=== PATIENT | male | born 1960 | race Caucasian/White ===

== ENCOUNTER 2016-09-11 05:54 | Inpatient (IN) | payer OTHER ==
--- NOTE | 2016-09-10 09:55 | HP ---
[facility] - Chief Complaint Chief Complaint: right hip pain - Past Medical History Allergies/Adverse Reactions: Allergies Allergy/AdvReac Type Severity Reaction Status Date / Time No Known Drug Allergies Allergy Verified 08/19/14 11:42 - Current Medications Current Medications: Home Medications Medication Instructions Recorded Amlodipine Besylate 10 mg PO HS 09/04/16 Atorvastatin Ca [Lipitor] 20 mg PO DAILY 09/04/16 Hydrocodone/Acetaminophen 1 each PO DAILY PRN 09/04/16 [Hydrocodon-Acetaminoph 7.5-325] Losartan/Hydrochlorothiazide 1 each PO DAILY 09/04/16 [Losartan-Hctz 100-12.5 mg Tab] Oxycodone HCl/Acetaminophen 1 - 2 tab PO HS PRN 09/04/16 [Percocet 5/325 -] Satellite Physical Exam - Physical Examination General Appearance: Well Nourished, Well Developed, Alert & Oriented x3 ENT: Clear Lung: Normal air movement Heart: Regular rate & rhythm Extremities: Other (right hip- + ttp, decr rom, nvi xrays show severe hip djd) Neurological: Intact, Alert, Oriented Satellite Impression/Plan - Impression/Plan Impression: right hip djd Operative Procedure: right suzanne thr Date to be Performed: 09/11/16
[2016-09-11] MEDS ORDERED: GABAPENTIN 300 MG CAPSULE (FP) PO ONE (06:12)
[2016-09-11] MEDS ORDERED: CEFAZOLIN 2 GM/D5W 50 ML IVPB ONE (06:12)
[2016-09-11] MEDS ORDERED: oxyCODONE HCL 10 MG SUSTAINED ACTING TABLET PO ONE (06:12)
[2016-09-11] MEDS ORDERED: TRANEXAMIC ACID 1000 MG/10 ML VIAL IVPUSH ONE (06:12)
[2016-09-11] MEDS ORDERED: CELECOXIB 200 MG CAPSULE PO ONE (06:12)
[2016-09-11 06:34] VITALS: BMI 35.2
[2016-09-11] MEDS ORDERED: DEXAMETHASONE SOD PHOSPHATE/PF 10 MG/ML SDV ONE (06:53)
[2016-09-11] MEDS ORDERED: SODIUM CHLORIDE 0.9% P/F 10 ML VIAL IJ ONE (06:53)
[2016-09-11] MEDS ORDERED: ROPIVACAINE HCL 0.5% 30ML VIAL ONE (06:53)
[2016-09-11] MEDS ORDERED: MIDAZOLAM HCL 2 MG/2 ML SINGLE DOSE VIAL ONE (06:53)
[2016-09-11] MEDS ORDERED: VANCOMYCIN 1,000 MG VIAL (RESTRICTED TO ID ONLY) ONE (07:26)
[2016-09-11] MEDS ORDERED: ceFAZolin SODIUM 1 GM VIAL ONE (07:26)
[2016-09-11] MEDS ORDERED: ePHEDrine SULFATE 50 MG/1 ML AMPULE ONE (07:40)
[2016-09-11] MEDS ORDERED: PROPOFOL 20 ML ONE ×5 (07:40)
[2016-09-11] MEDS ORDERED: SUCCINYLCHOLINE CHLORIDE 200 MG/10 ML VIAL ONE (07:41)
[2016-09-11] MEDS ORDERED: BUPIVACAINE HCL/PF 0.5% (5MG/ML) 10 ML VIAL ONE (07:45)
[2016-09-11] MEDS ORDERED: KETAMINE HCL 200 MG/20 ML VIAL ONE (08:56)
[2016-09-11] MEDS ORDERED: VANCOMYCIN 1,000 MG VIAL (RESTRICTED TO ID ONLY) IVPB ONE (09:33)
[2016-09-11] MEDS ORDERED: ONDANSETRON 4 MG/2 ML VIAL IVPB PRN (09:56)
[2016-09-11] MEDS ORDERED: MAGNESIUM HYDROX 2400MG/30ML ORAL SUSPENSION 30 ML CUP PO PRN (09:56)
--- NOTE | 2016-09-11 09:59 | OP ---
Operative Note - Note: Operative Date: 09/11/16 (jim) Pre-Operative Diagnosis: right hip djd Operation: right suzanne thr Post-Operative Diagnosis: Same as Pre-op Surgeon: Barrett Orona Obiee Obia Solution Architect: Juan De Leon Anesthesiologist/SHUTTLE OPERATOR: Gee Lucas Anesthesia: Spinal, Local Specimens Removed: femoral head Estimated Blood Loss (mls): 100 Operative Report Dictated: Yes
[2016-09-11] MEDS ORDERED: LACTATED RINGERS SOLUTION 1,000 ML IV SCH (10:00)
[2016-09-11] MEDS ORDERED: PATIENT'S OWN MEDICATION (NON-FORMULARY) (Losartan/Hydrochlorothiazide [Losartan-Hctz 100- PO SCH (10:00)
[2016-09-11] MEDS ORDERED: MAG HYDROX/AL HYDROX/SIMETH 30 ML UNIT-DOSE CUP PO PRN (10:20)
[2016-09-11] MEDS ORDERED: ACETAMINOPHEN 325 MG TABLET (FP) ONE (10:31)
[2016-09-11] MEDS ORDERED: oxyCODONE HCL 5 MG TABLET PO PRN (10:37)
[2016-09-11] MEDS ORDERED: ACETAMINOPHEN 325 MG TABLET (FP) PO ONE (10:39)
[2016-09-11] MEDS ORDERED: oxyCODONE HCL 5 MG TABLET PO ONE (10:58)
[2016-09-11 11:15] LABS: HIV 1 & 2 AB NEGATIVE; HIV 1 AGp24 NEGATIVE
[2016-09-11] MEDS: ATORVASTATIN CA 20 MG TABLET (FP) PO SCH (11:33)
[2016-09-11] MEDS: SENNOSIDES/DOCUSATE COMBO (SENNA PLUS) TABLET (UD) PO SCH ×2 (11:33→22:00)
[2016-09-11] MEDS: MULTIVITAMINS (DAILY MVI) TABLET (FP) PO SCH (11:34)
[2016-09-11] MEDS: ACETAMINOPHEN 325 MG TABLET (FP) PO SCH ×2 (11:34→16:49)
[2016-09-11] MEDS: PANTOPRAZOLE 40 MG TABLET (FP) PO SCH (11:34)
[2016-09-11] MEDS: oxyCODONE HCL 5 MG TABLET PO PRN ×3 (14:02→21:59)
[2016-09-11] MEDS: CEFAZOLIN 2 GM/D5W 50 ML IVPB SCH (15:51)
--- NOTE | 2016-09-11 15:53 | SPEC ---
DATE OF OPERATION: 09/11/2016 PREOPERATIVE DIAGNOSIS: Degenerative Joint Disease, Right Hip POSTOPERATIVE DIAGNOSIS: Degenerative Joint disease, Right Hip PROCEDURE: Right Total Hip Replacement with Robotic Arm Navigation Assistance (Makoplasty) SURGEON: Dr. Barrett Orona RADIATION ONCOLOGY MANAGER: Miguel Teixeira ANESTHESIA: Regional and spinal CLOSURE: A 56 Press-Fit Tritanium Fly acetabulum with polyethylene accepting a 36-mm head with a 10-degree lip, a number 5 Accolade 2 femoral stem, with a +2.5 ceramic 36-mm femoral head, No. 1 Vicryl for fascia, 0 and 2-0 subcutaneous, 3-0 Monocryl subcuticular for skin with skin glue, 4-0 undyed Vicryl to pin sites. ESTIMATED BLOOD LOSS: Approximately 200 mL. COMPLICATIONS: None. CONDITION: To recovery room in stable condition. DESCRIPTION OF OPERATIVE PROCEDURE: The patient was taken to the operating room. Spinal anesthesia as well as sciatic block was administered by the anesthesiologist. The IV Kefzol and TXA were administered prophylactically prior to the case. The patient was placed in the lateral decubitus position with all prominences well-padded. An EKG pad was secured to the inferior pole of the patella for limb length calculations intraoperatively. The right hip area was prepped and draped in the usual sterile fashion. A 12.0-15.0 cm curved longitudinal incision over the posterolateral aspect of the greater trochanter was made. Hemostasis was achieved with Bovie cautery. Sharp dissection was carried down to the level of the fascia. The fascia was opened the entire length of the incision, spreading the gluteus ki fibers in the direction of their origin. A Charnley retractor was placed in this layer, and care was taken to be far away from the sciatic nerve. The short external rotators were detached off the insertion of the greater trochanter and peeled off the capsule. A posterior capsulectomy was then performed. A checkpoint was malleted into the greater trochanter. Three small stab incisions were done on the iliac crest. Through these stab incisions, threaded guide pins were drilled into the iliac crest. These pins were fastened to the Navigation array. The check point on the greater trochanter, and the EKG pad on the inferior pole of the patella were used to measure preoperative limb length and offset. The hip was then dislocated. The hip was osteotomized at the appropriate level as directed by the preoperative template. Anterior and posterior retractors were placed around the acetabulum. Circumferential labrum was excised. A checkpoint was malleted into the acetabulum superiorly. The acetabulum was then registered with the Navigation device with multiple sites within the acetabulum and around the rim of the acetabulum. I t was then confirmed popping the blue bubbles, confirming ideal position and confirmation of adequate registration with the Navigation device. Using a 48 reamer, which was decided preoperatively on the preoperative template, the robotic arm was brought into the field and was used to ream the acetabulum down to the appropriate depth with the appropriate orientation and inversion applied. After reaming, a good hemispherical bleeding surface was encountered in the acetabulum. A CIARRA shell of the appropriate size was then malleted into place achieving excellent fit. Confirmation of the appropriate orientation and inversion was confirmed using the probe, and assuring that the acetabular cup was placed in the ideal position as templated preoperatively. A real liner was then clipped into place with a 10 degree lip in the posterior-superior quadrant. Anterior and posterior osteophytes were removed using osteotome. Next, our attention was directed to the femur. The proximal femur was opened with a box chisel, rat-tail, anchovy and serial reamers. This was done until the appropriate reamer achieved good fit and fill of the proximal femur. A trial reduction with the appropriate neck and head, as again measured from our preoperative template, was performed. Limb lengths were confirmed both visually and using the Navigation device, again measuring the inferior pole of the patella and the checkpoint of the greater trochanter. This confirmed ideal position of the femoral component, lengths and offset. The trial components were removed. The real component was malleted into place. The head was cold-welded to the Charnley and the hip was reduced. Again, the hip was found to have equal limb lengths as described previously. The hip was also taken through a range of motion and found to be stable in external rotation and extension, was stable in marked flexion, stable in adduction and internal rotation, and had a positive hang test and negative telescoping. The hip was irrigated with copious amounts of irrigation. Hemostasis was achieved. Vancomycin powder was sprinkled into the joint. A second dose of TXA was administered. The fascia was closed with No. 1 Vicryl interrupted suture, 0 and 2-0 for subcutaneous, and 3-0 Monocryl subcuticular for skin with skin glue. This was followed by an Aquacel dressing. The patient was flipped into the supine position. Bilateral SCDs and an abduction pillow were applied. X-rays showed good position of the components. The patient was awakened from anesthesia and transferred to the recovery room in stable condition. COMPLICATIONS: None. ESTIMATED BLOOD LOSS: Less than 100 mL. Miki [id number]
[2016-09-11] MEDS: GABAPENTIN 300 MG CAPSULE (FP) PO SCH (21:58)
[2016-09-11] MEDS: oxyCODONE HCL 10 MG SUSTAINED ACTING TABLET PO SCH (21:59)
[2016-09-11] MEDS ORDERED: amLODIPine BESYLATE 10 MG TABLET (FP) PO SCH (22:00)
[2016-09-12] MEDS ORDERED: ACETAMINOPHEN 325 MG TABLET (FP) ONE (00:07)
[2016-09-12] MEDS: CEFAZOLIN 2 GM/D5W 50 ML IVPB SCH (00:07)
[2016-09-12] MEDS: ACETAMINOPHEN 325 MG TABLET (FP) PO SCH ×3 (00:08→10:00)
[2016-09-12] MEDS: oxyCODONE HCL 5 MG TABLET PO PRN ×2 (04:58→07:58)
[2016-09-12] MEDS ORDERED: ASPIRIN 325 MG TABLET PO SCH (08:00)
--- NOTE | 2016-09-12 08:04 | PN ---
Progress Note (short form) - Note Progress Note: 55M POD1 s/p R THR under spinal anesthetic doing well. Pain is well controlled, AVSS, no anesthetic complications reported, sensory and motor function intact in both lower extremities.
[2016-09-12 08:49] LABS: MCH 31.1 pg (25.7-33.7); MCHC 34.2 g/dl (32.0-35.9); MEAN CELL VOLUME 90.8 fl (80-96); PLATELET COUNT 233 K/MM3 (134-434); RDW 12.1 % (11.9-15.9); WHITE BLOOD COUNT 10.7 K/mm3 (4.0-10.0)
[2016-09-12 09:10] LABS: CALCIUM 8.4 mg/dl (8.4-10.2); CREATININE 0.9 mg/dl (0.6-1.3)
--- NOTE | 2016-09-12 09:25 | DS ---
Physical Examination Vital Signs: Vital Signs Temperature 98.6 F 09/12/16 06:00 Pulse Rate 88 09/12/16 06:00 Respiratory Rate 19 09/12/16 08:42 Blood Pressure 144/90 09/12/16 06:00 O2 Sat by Pulse Oximetry (%) 92 L 09/12/16 08:42 Labs: CBC, BMP 09/12/16 07:26 09/12/16 07:26 Discharge Summary Reason For Visit: RIGHT HIP OSTEOARTHRITIS Procedures: Principal: s/p right suzanne thr Hospital Course: admitted for elective right suzanne thr, uneventful post-op, stable for d/c Condition: Good - Instructions Diet, Activity, Other Instructions: Post-op Instructions-Total Hip Replacement Call the office for a follow-up appointment in 1 week - [phone] Aspirin 325mg daily for 6 weeks. Pain medication was sent into your pharmacy. Apply Graduated Compression Stockings (TEDs) to both lower extremities- remove daily for hygiene ONLY Apply Sequential Compression Device (SCDs) to both Lower extremities remove for PT and hygiene ONLY Apply cold packs to affected area for 15 minutes every 2 hours. Physical Therapist will come to your home for the first 5 days. You will be set up with outpatient PT at your first post-operative visit. Patient may ambulate as tolerated-encourage self care (at least every 2-3 hours while awake) with walker or cane Maintain Aquacel (waterproof) dressing to operative wound (will be removed by surgeon at first office visit) Shower with Aquacel dressing in place-if Aquacel integrity compromised, remove and apply dry sterile dressing and notify Orthopedist. DO NOT SHOWER unless Orthopedists approves without Aquacel dressing CONTACT THE OFFICE FOR ANY CHANGE IN YOUR CONDITION (for example-fever greater than 102 degrees,excessive bleeding from operative site, purulent drainage, severe swelling or pain) GO TO THE EMERGENCY ROOM IF THERE IS A MEDICAL EMERGENCY Hip Precautions: * Keep a rolled towel under affected heel while in bed or chair (to keep knee in extension) * Dependent upon approach: * Posterior - do not cross legs; do not sit on low chairs or toilets. * If you have any questions, please do not hesitate to call the office - [phone]. Referrals: Barrett Orona MD [Staff Physician] - Disposition: VNS/HOME HEALTH CARE - Home Medications Comprehensive Discharge Medication List: Ambulatory Orders Amlodipine Besylate 10 mg PO HS 09/04/16 Atorvastatin Ca [Lipitor] 20 mg PO DAILY 09/04/16 Hydrocodone/Acetaminophen [Hydrocodon-Acetaminoph 7.5-325] 1 each PO DAILY PRN 09/04/16 Losartan/Hydrochlorothiazide [Losartan-Hctz 100-12.5 mg Tab] 1 each PO DAILY Oxycodone HCl/Acetaminophen [Percocet 5-325 mg Tablet] 1 - 2 tab PO HS PRN 09/04
--- NOTE | 2016-09-12 09:25 | PN ---
Progress Note (short form) - Note Progress Note: Ortho Pt seen and examined s/p right suzanne thr pod #1 Selected Entries 09/12/16 06:00 Temperature 98.6 F Pulse Rate 88 Respiratory 19 Rate Blood Pressure 144/90 Laboratory Tests 09/12/16 07:26 WBC 10.7 H Hgb 12.4 Hct 36.3 Plt Count 233 dressing c/d/i, calf soft, nt nvi a/p PT dvt ppx pain control d/c home today f/u in 1 week
[2016-09-12] MEDS: PANTOPRAZOLE 40 MG TABLET (FP) PO SCH (09:49)
[2016-09-12] MEDS: SENNOSIDES/DOCUSATE COMBO (SENNA PLUS) TABLET (UD) PO SCH (09:49)
[2016-09-12] MEDS: oxyCODONE HCL 10 MG SUSTAINED ACTING TABLET PO SCH (09:49)
[2016-09-12] MEDS: GABAPENTIN 300 MG CAPSULE (FP) PO SCH (09:50)
[2016-09-12] MEDS: ATORVASTATIN CA 20 MG TABLET (FP) PO SCH (09:50)
[2016-09-12] MEDS: MULTIVITAMINS (DAILY MVI) TABLET (FP) PO SCH (09:51)
[2016-09-12] MEDS ORDERED: LOSARTAN POTASSIUM 50 MG TABLET (FP) PO SCH (10:00)
[2016-09-12] MEDS ORDERED: HYDROCHLOROTHIAZIDE 12.5 MG CAPSULE (FP) PO SCH (10:00)
[2016-09-12 10:11] VITALS: BP 101/59; PULSE 78; TEMP 98.4
--- NOTE | 2016-09-13 14:01 | PATH ---
Surgical Pathology Report Patient Name: MORRIS DUKE Med. Rec. #: [id number] /Age/Gender: 1960 (Age: 55) / M Account: [id number] Location: [facility] MED-SURG Taken: 09/11/2016 Received: 09/11/2016 Reported: 09/13/2016 Physicians: Barrett Orona M.D. Specimen(s) Received RIGHT FEMORAL HEAD Clinical History Right hip osteoarthritis Final Diagnosis BONE AND SOFT TISSUE, RIGHT HIP, REPLACEMENT: DEGENERATIVE JOINT DISEASE. Electronically Signed Franklin France M.D. Gross Description Received in formalin, labeled "right femoral head," is a 4.8 x 4.8 x 4.7 cm. femoral head with a 1.4 cm in length portion of femoral length attached. The margin of resection is smooth. There is a 4.3 cm greatest dimension area of eburnation present. The remaining articular surface is stearns-yellow and diffusely granular. The underlying trabecular bone is yellow and hard. A branch service representative section is submitted in one cassette, following decalcification. 09/12/201609/12/2016
== END 2016-09-12 11:09 | disposition home health service (06) | DRG 301 ==
LOC: FM/S 05:54
PROVIDERS: ADMIT Orthopaedic Surgery; ATTEND Orthopaedic Surgery
PROC: 8E0Y0CZ Robotic Assisted Procedure of Lower Extremity, Open Approach (ICD-10-PCS; 2016-09-11)
PROC: 0SR904A Replacement of Right Hip Joint with Ceramic on Polyethylene Synthetic Substitute, Uncemented, Open Approach (ICD-10-PCS; principal; 2016-09-11 08:29)
DX: M16.11 Unilateral primary osteoarthritis, right hip (principal); I10 Essential (primary) hypertension; E78.5 Hyperlipidemia, unspecified; J44.9 Chronic obstructive pulmonary disease, unspecified; F17.210 Nicotine dependence, cigarettes, uncomplicated
CPT/HCPCS: 36415; 73523-TC; 80048; 85027; 87389; 88304-TC; 88311-TC; 94010; 94760; 97116-GP; 97161-GP

== ENCOUNTER 2018-02-09 10:53 | Observation (INO) | payer OTHER ==
[2018-02-09] MEDS ORDERED: morphine CARPU-JECT 4 MG/1 ML DISP.SYRIN IVPUSH ONE ×2 (11:33→13:16)
--- NOTE | 2018-02-09 11:34 | PDOC ---
Attending Attestation - Resident Resident Name: Jacqueline Rodas - ED Attending Attestation I have performed the following: I have examined & evaluated the patient, The case was reviewed & discussed with the resident, I agree w/resident's findings & plan, Exceptions are as noted - HPI HPI: 02/09/18 12:51 Patient is a 57 year old male with a significant past medical history of HTN, who presents to the ED with complaints of left sided rib pain, s/p fall that occurred just prior to ED arrival. Patient reports standing on a ladder when he missed a step on his way down, causing him to fall 8 feet onto the floor causing immediate pain. He reports experiencing associated increased difficulty breathing with inspiration as well as left upper quadrant pain. Patient reports taking 1 dose of percocet for pain while at home with minimal relief, prompting him to come into the ED for further evaluation. As per patient 's daughter, patient was able to ambulate immediately after incident but did require some assistance. Denies head strike or LOC. Denies focal weakness/ numbness. Denies nausea, vomiting. Denies fevers, chills. Denies contact with sick individuals, out of state travelling. Denies loss of consciousness. Denies any other symptoms. Allergies: None Social history: Former smoker. Social drinker. Surgical history: L Total knee replacement, L knee repair x3, B/l rotator cuff tear, umbilical hernia repair PMD: Dr. Khoa Finnegan - Physicial Exam PE: 02/09/18 12:53 GENERAL: Awake, alert, and fully oriented, in no acute distress HEAD: No signs of trauma EYES: PERRLA, EOMI, sclera anicteric, conjunctiva clear ENT: Auricles normal inspection, hearing grossly normal, nares patent, oropharynx clear without exudates. Moist mucosa NECK: Normal ROM, supple, no lymphadenopathy, JVD, or masses LUNGS: Breath sounds equal, clear to auscultation bilaterally. No wheezes, and no crackles HEART: Regular rate and rhythm, normal S1 and S2, no murmurs, rubs or gallops. + ttp over anterior aspect of L rib 8-10. No crepitance or deformities ABDOMEN: Soft, nontender, normoactive bowel sounds. No guarding, no rebound. No masses EXTREMITIES: Normal range of motion, no edema. No clubbing or cyanosis. No cords, erythema, or tenderness BACK: No midline spinal tenderness in cervical/thoracic/lumbar region NEUROLOGICAL: Normal speech, cranial nerves intact, negative pronator drift, 5/ 5 strength in all 4 extremities, normal sensation to light touch in all 4 extremities, normal cerebellar exam, normal gait, normal reflexes and tone SKIN: Warm, Dry, normal turgor, no rashes or lesions noted. FAST neg, +small L effusion? Lungs are both up - Medical Decision Making 02/09/18 12:58 57yo M hx HTN presents to the ED with L anterior rib pain after fall from approx 8 feet. No head strike or LOC. COncern for rib fracture with possible L hemothorax given effusion seen on fast exam. Pt hypoxic to 92% RA, otherwise vitals wnl. Plan -labs -monitor -CXR -CT chest, abd, pelvis -pain control -reassess 02/09/18 16:24 CT with no rib fractures. +LLL infiltrate. Likely pulmonary contusion. Pt has O2 requirement. Will admit for pain control and pulm contusion. Accepted by Dr. Keys Case discussed in detail with admitting physician including history, physical exam and ancillary studies. Admitting physician has assumed care for the patient, will follow all pending diagnostics and will complete the evaluation and treatment. Heart Score/ECG Review - ECG Intrepretation Comment:: 02/09/18 16:26 Twelve-lead EKG was performed and reviewed by me. Normal sinus rhythm, rate 90. Normal axis and intervals. No ST elevations. T wave inversion in lead 3 with T- wave flattening in aVF, V2 to V3. When compared to previous EKG from August 2014, no significant change.
[2018-02-09] MEDS ORDERED: morphine SULFATE 4 MG/ML VIAL ONE ×2 (11:39→13:20)
[2018-02-09] MEDS ORDERED: SODIUM CHLORIDE 1,000 ML IV STA (12:06)
[2018-02-09 12:16] LABS: BASO % 0.3 % (0-2.0); EOS % 1.2 % (0-4.5); HEMATOCRIT 42.2 % (35.4-49); HEMOGLOBIN 14.7 GM/dL (11.7-16.9); LYMPH % 15.3 % (8-40); MCH 31.5 pg (25.7-33.7); MCHC 34.8 g/dl (32.0-35.9); MEAN CELL VOLUME 90.7 fl (80-96); MEAN PLT VOLUME 8.2 fl (7.5-11.1); MONO % 6.8 % (3.8-10.2); NEUT % 76.4 % (42.8-82.8); PLATELET COUNT 280 K/MM3 (134-434); RBC 4.65 M/mm3 (4.00-5.60); RDW 12.7 % (11.9-15.9); WHITE BLOOD COUNT 12.2 K/mm3 (4.0-10.0)
--- NOTE | 2018-02-09 12:27 | PDOC ---
History of Present Illness - General Chief Complaint: Injury Stated Complaint: RIB PAIN Time Seen by Provider: 02/09/18 11:11 - History of Present Illness Initial Comments: 57yo M with PMH of hypertension presenting after traumatic fall. He was eight steps up a ladder when he missed a step and fell on the ground on his left side. He remembers the entire incident and denies loss of consciousness or hitting his head. Reports pain on his left chest with exacerbated pain while breathing and moving. Patient took a percocet at home which alleviated his pain. No fevers, chills, nausea, vomiting, headache, or dizziness. 02/09/18 14:55 Past History - Past Medical History Allergies/Adverse Reactions: Allergies Allergy/AdvReac Type Severity Reaction Status Date / Time No Known Drug Allergies Allergy Verified 02/09/18 11:11 Home Medications: Ambulatory Orders Amlodipine Besylate 10 mg PO HS 09/04/16 Atorvastatin Ca [Lipitor] 20 mg PO DAILY 09/04/16 Losartan/Hydrochlorothiazide [Losartan-Hctz 100-12.5 mg Tab] 1 each PO DAILY Oxycodone HCl/Acetaminophen [Percocet 10-325 mg Tablet] 1 each PO Q6H #60 tablet MDD 4 09/12/16 Penicillin V Potassium [Pen Vee K -] 500 mg PO TID 02/09/18 Anemia: No Asthma: No Cancer: No Cardiac Disorders: No CVA: No COPD: No CHF: No Dementia: No Diabetes: No GI Disorders: No Disorders: No HTN: Yes Hypercholesterolemia: No Liver Disease: No Seizures: No Thyroid Disease: No - Surgical History Abdominal Surgery: Yes (HERNIA REPAIR WITH MESH 2011) Appendectomy: No Cardiac Surgery: No Cholecystectomy: No Lung Surgery: No Neurologic Surgery: No Orthopedic Surgery: Yes (LEFT ACL REPAIR 1999; ARTHROSCOPIES) - Suicide/Smoking/Psychosocial Hx Smoking History: Former smoker Have you smoked in the past 12 months: Yes Number of Cigarettes Smoked Daily: 20 Information on smoking cessation initiated: No 'Breaking Loose' booklet given: 09/04/16 Hx Alcohol Use: No Drug/Substance Use Hx: Yes (DAILY) Substance Use Type: Marijuana Hx Substance Use Treatment: No Review of Systems - Review of Systems Comments:: Constitutional: no fever, no chills HEENT: no throat pain, no hemoptysis Cardiovascular: no chest pain, no palpitations Respiratory: no cough, no shortness of breath Gastrointestinal: no abdominal pain, no nausea, no vomiting Genitourinary: no dysuria, no frequency Musculoskeletal: no myalgia, no arthralgia Skin: no rash, no itching Neurologic: no headache, no dizziness *Physical Exam - Vital Signs Last Vital Signs Temp Pulse Resp BP Pulse Ox 98 F 92 H 20 139/81 95 02/09/18 11:04 02/09/18 11:04 02/09/18 12:05 02/09/18 11:04 02/09/18 11:04 - Physical Exam Comments: General: Awake, alert, and fully oriented, in no acute distress Head: no signs of trauma Eyes: PERRL, EOMI, sclera anicteric ENT: moist mucus membranes, Neck: Normal ROM, no tenderness, supple, no lymphadenopathy Lungs: +splinting, Lungs clear, Normal breath sounds Cardio: +left chest tender to palpation overlying ribs 3/4/5; Regular rhythm, S1 and S2 present, no murmurs, rubs, or gallops Abdomen: Soft, nontender, normal bowel sounds Extremities: Normal range of motion, distal pulses present in all extremities SKIN: Warm, Dry, normal turgor, no rashes or lesions noted Neurologic: Cranial nerves II through XII grossly intact. Normal speech ED Treatment Course - LABORATORY CBC & Chemistry Diagram: 02/09/18 12:08 02/09/18 12:08 - ADDITIONAL ORDERS Additional order review: 02/09/18 12:08 RBC 4.65 MCV 90.7 MCHC 34.8 RDW 12.7 MPV 8.2 Neutrophils % 76.4 D Lymphocytes % 15.3 D Monocytes % 6.8 Eosinophils % 1.2 Basophils % 0.3 - RADIOLOGY Radiology Studies Ordered: Category Date Time Status ABDOMEN & PELVIS CT W/O CONTR [CT] Stat CT Scan 02/09/18 11:[address] WITHOUT CONTRAST [CT] Stat CT Scan 02/09/18 11:44 Taken - Medications Given in the ED: ED Medications Discontinued Medications Generic Name Dose Route Start Last Admin Trade Name Freq PRN Reason Stop Dose Admin Morphine Sulfate 4 mg 02/09/18 11:33 02/09/18 11:42 Morphine Injection - IVPUSH 02/09/18 11:34 4 mg ONCE ONE Administration Medical Decision Making - Medical Decision Making FAST exam negative for free fluid. EKG rate 90, flipped t waves on lead III does not show acute change when compared with prior EKG in July 2014. CT chest, abdomen, pelvis did not reveal fractures or breaks. Left lower lobe infiltrate, likely a pulmonary contusion. Given 4mg morphine, 1L NS, and 4mg morphine. Spoke with hospitalist team who will accept the patient. 02/09/18 16:29 Laboratory Tests 02/09/18 02/09/18 02/09/18 12:08 12:08 12:08 WBC 12.2 H RBC 4.65 Hgb 14.7 Hct 42.2 D MCV 90.7 MCH 31.5 MCHC 34.8 RDW 12.7 Plt Count 280 D MPV 8.2 Absolute Neuts (auto) 9.4 Neutrophils % 76.4 D Lymphocytes % 15.3 D Monocytes % 6.8 Eosinophils % 1.2 Basophils % 0.3 Nucleated RBC % 0 PT with INR 12.00 INR 1.06 Sodium 139 Potassium 3.9 Chloride 104 Carbon Dioxide 25 Anion Gap 10 BUN 17 Creatinine 1.1 Creat Clearance w eGFR > 60 Random Glucose 135 H Calcium 9.1 Total Bilirubin 0.3 AST 18 D ALT 23 Alkaline Phosphatase 120 H Creatine Kinase 282 Creatine Kinase Index 0.8 CK-MB (CK-2) 2.31 Troponin I < 0.02 Total Protein 7.6 Albumin 4.3 Blood Type Antibody Screen 02/09/18 02/09/18 02/09/18 12:08 13:23 13:25 WBC RBC Hgb Hct MCV MCH MCHC RDW Plt Count MPV Absolute Neuts (auto) Neutrophils % Lymphocytes % Monocytes % Eosinophils % Basophils % Nucleated RBC % PT with INR INR Sodium Potassium Chloride Carbon Dioxide Anion Gap BUN Creatinine Creat Clearance w eGFR Random Glucose Calcium Total Bilirubin AST ALT Alkaline Phosphatase Creatine Kinase Creatine Kinase Index CK-MB (CK-2) Troponin I Total Protein Albumin Blood Type Cancelled O POSITIVE O POSITIVE Antibody Screen Cancelled Negative *DC/Admit/Observation/Transfer Diagnosis at time of Disposition: Trauma, Intractable pain Pulmonary contusion Qualifiers: Encounter type: initial encounter Laterality: left Qualified Code(s): S27.321A - Contusion of lung, unilateral, initial encounter - Discharge Dispostion Condition at time of disposition: Guarded Decision to Admit order: Yes - Referrals - Patient Instructions - Post Discharge Activity
[2018-02-09 12:34] LABS: CHLORIDE 104 mmol/L (98-107); POTASSIUM 3.9 mmol/L (3.5-5.1); SODIUM 139 mmol/L (136-145)
[2018-02-09 12:35] LABS: INR 1.06 (0.82-1.09)
[2018-02-09 12:41] LABS: ALBUMIN 4.3 g/dl (3.4-5.0); ALK PHOS 120 U/L (45-117); ANION GAP 10 (8-16); BILIRUBIN,TOTAL 0.3 mg/dL (0.2-1.0); BLOOD UREA NITROGEN 17 mg/dL (7-18); CALCIUM 9.1 mg/dL (8.5-10.1); CO2 25 mmol/L (21-32); CREATININE 1.1 mg/dL (0.7-1.3); GLUCOSE,RANDOM 135 mg/dL (74-106); SGOT/AST 18 U/L (15-37); SGPT/ALT 23 U/L (12-78); TOT PROT 7.6 g/dl (6.4-8.2)
[2018-02-09] MEDS ORDERED: ONDANSETRON 4 MG/2 ML VIAL ONE (15:54)
[2018-02-09] MEDS ORDERED: ONDANSETRON 4 MG/2 ML VIAL IVPUSH PRN (16:48)
--- NOTE | 2018-02-09 17:12 | HP ---
CHIEF COMPLAINT: L side pain PCP:Dunia HISTORY OF PRESENT ILLNESS: 57yo M with PMH HTN presented to the ER after falling from a ladder. He was changing some lightbulbs at home and was on the 8th rung of the ladder where he lost his balance and fell off landing on his L side. He is unaware if he struck the ladder on his way down. Denies LOC or striking his head on the ladder or the floor. was in his normal state of health the last few days. states he took percocet x2 at home with no relief and came to the ER. was on amoxicillin for recent tooth extraction and still taking abx. currently c/o L side pain not radiating 04/23. assoc with dyspnea and nausea. denies CP, SOB, fever, chills, dizzyness, blurred vision, V/C/D no recent changes to his medication ER course was notable for: (1) EKG sinus tachycardia. no ST changes. non specific T wave flattening (2) (3) Recent Travel: denies PAST MEDICAL HISTORY: HTN PAST SURGICAL HISTORY: B/L shoulder repair, L knee replacement, Hip replacement Social History: Smoking: quit 2 years ago Alcohol:denies Drugs: occasional THC use Family History:father CAD at 35, brother lymphoma Allergies No Known Drug Allergies Allergy (Verified 02/09/18 11:11) HOME MEDICATIONS: Home Medications Medication Instructions Recorded Amlodipine Besylate 10 mg PO HS 09/04/16 Atorvastatin Ca [Lipitor] 20 mg PO DAILY 09/04/16 Losartan/Hydrochlorothiazide 1 each PO DAILY 09/04/16 [Losartan-Hctz 100-12.5 mg Tab] Oxycodone HCl/Acetaminophen 1 each PO Q6H #60 tablet MDD 4 09/12/16 [Percocet 10-325 mg Tablet] REVIEW OF SYSTEMS CONSTITUTIONAL: Absent: fever, chills, diaphoresis, generalized weakness, malaise, loss of appetite, weight change HEENT: Absent: rhinorrhea, nasal congestion, throat pain, throat swelling, difficulty swallowing, mouth swelling, ear pain, eye pain, visual changes CARDIOVASCULAR: Absent: chest pain, syncope, palpitations, irregular heart rate, lightheadedness , peripheral edema RESPIRATORY: Absent: cough, shortness of breath, dyspnea with exertion, orthopnea, wheezing, stridor, hemoptysis GASTROINTESTINAL:nausea, Absent: abdominal pain, abdominal distension, vomiting, diarrhea, constipation , melena, hematochezia GENITOURINARY: Absent: dysuria, frequency, urgency, hesitancy, hematuria, flank pain, genital pain MUSCULOSKELETAL: L side pain Absent: myalgia, arthralgia, joint swelling,, neck pain SKIN: Absent: rash, itching, pallor HEMATOLOGIC/IMMUNOLOGIC: Absent: easy bleeding, easy bruising, lymphadenopathy, frequent infections ENDOCRINE: Absent: unexplained weight gain, unexplained weight loss, heat intolerance, cold intolerance NEUROLOGIC: Absent: headache, focal weakness or paresthesias, dizziness, unsteady gait, seizure, mental status changes, bladder or bowel incontinence PSYCHIATRIC: Absent: anxiety, depression, suicidal or homicidal ideation, hallucinations. PHYSICAL EXAMINATION Vital Signs - 24 hr 02/09/18 02/09/18 02/09/18 11:04 12:05 16:16 Temperature 98 F 98.3 F Pulse Rate 92 H Pulse Rate [ 92 H Right] Respiratory 18 20 18 Rate Blood Pressure 139/81 Blood Pressure 142/85 [Right Arm] O2 Sat by Pulse 95 91 L Oximetry (%) GENERAL: Awake, alert, and fully oriented, +distress due to pain, diaphoretic HEAD: Normal with no signs of trauma. EYES: Pupils equal, round and reactive to light, extraocular movements intact, sclera anicteric, conjunctiva clear. No lid lag. EARS, NOSE, THROAT: Ears normal, nares patent, oropharynx clear without exudates. Moist mucous membranes. NECK: Normal range of motion, supple without lymphadenopathy, JVD, or masses. LUNGS: Breath sounds equal, clear to auscultation bilaterally. No wheezes, and no crackles. No accessory muscle use. HEART: tachycardic Regular rhythm, normal S1 and S2 without murmur, rub or gallop. ABDOMEN: Soft, nontender, not distended, normoactive bowel sounds, no guarding, no rebound, no masses. No hepatomegaly or splenomegaly. MUSCULOSKELETAL: Normal range of motion at all joints. No bony deformities. No CVA tenderness. +L point tenderness mid axillary line along the 8th rib mediallly UPPER EXTREMITIES: 2+ pulses, warm, well-perfused. No cyanosis. No clubbing. No peripheral edema. LOWER EXTREMITIES: 2+ pulses, warm, well-perfused. No calf tenderness. No peripheral edema. NEUROLOGICAL: Cranial nerves II-XII intact. Normal speech. Normal gait. PSYCHIATRIC: Cooperative. Good eye contact. Appropriate mood and affect. SKIN: Warm, dry, normal turgor, no rashes or lesions noted, normal capillary refill. Laboratory Results - last 24 hr 02/09/18 02/09/18 02/09/18 12:08 12:08 12:08 WBC 12.2 H RBC 4.65 Hgb 14.7 Hct 42.2 D MCV 90.7 MCH 31.5 MCHC 34.8 RDW 12.7 Plt Count 280 D MPV 8.2 Absolute Neuts (auto) 9.4 Neutrophils % 76.4 D Lymphocytes % 15.3 D Monocytes % 6.8 Eosinophils % 1.2 Basophils % 0.3 Nucleated RBC % 0 PT with INR 12.00 INR 1.06 Sodium 139 Potassium 3.9 Chloride 104 Carbon Dioxide 25 Anion Gap 10 BUN 17 Creatinine 1.1 Creat Clearance w eGFR > 60 Random Glucose 135 H Calcium 9.1 Total Bilirubin 0.3 AST 18 D ALT 23 Alkaline Phosphatase 120 H Creatine Kinase 282 Creatine Kinase Index 0.8 CK-MB (CK-2) 2.31 Troponin I < 0.02 Total Protein 7.6 Albumin 4.3 Blood Type Antibody Screen 02/09/18 02/09/18 02/09/18 12:08 13:23 13:25 WBC RBC Hgb Hct MCV MCH MCHC RDW Plt Count MPV Absolute Neuts (auto) Neutrophils % Lymphocytes % Monocytes % Eosinophils % Basophils % Nucleated RBC % PT with INR INR Sodium Potassium Chloride Carbon Dioxide Anion Gap BUN Creatinine Creat Clearance w eGFR Random Glucose Calcium Total Bilirubin AST ALT Alkaline Phosphatase Creatine Kinase Creatine Kinase Index CK-MB (CK-2) Troponin I Total Protein Albumin Blood Type Cancelled O POSITIVE O POSITIVE Antibody Screen Cancelled Negative ASSESSMENT/PLAN: 57yo M with PMH HTN presented to the ER after falling off a ladder with intractable L side pain 1. Intractable L side pain- due to trauma of falling off a ladder. received morphine 4mg x2 in the ER with only mild relief. believe patient has high tolerance to opiates. CT showing no rib fractures. continue with morphine 4mg Q3H prn. encourage to request as needed. PT eval in AM 2. Acute hypoxic respiratory distress- likely due to pain vs pulmonary contusion. infiltrate seen on CT in L[place] may be pulmonary contusion. low suspicion for infection. was 91% on RA initaily and now is 94% on RA. supplemental oxygen as needed. incentive spirometer to prevent splinting and developing atelectasis or PNA 3. Nausea- due to pain and/or opiates. zofran prn 4. Recent tooth extraction- on PCN at home day 4 of 7 day course. will continue 5. HTN- currently controlled. states he did take his meds this AM. bismark continue 6. dyslipdemia- statin 7. DVT ppx- EAM [facility] Reference #: [id number]- no narcotics listed prescribed in the states of [place] , [place], [place], [place] Hospitalist Screening - Colonoscopy Questionnaire Colonoscopy Questionnaire: Colonoscopy Questionnaire
[2018-02-09] MEDS: morphine SULFATE 4 MG/ML VIAL IVPUSH PRN ×2 (19:07→22:53)
[2018-02-09] MEDS: PENICILLIN V POTASSIUM 500 MG TABLET PO SCH (21:57)
[2018-02-09] MEDS ORDERED: ATORVASTATIN CA 20 MG TABLET (FP) PO SCH (22:00)
[2018-02-09] MEDS ORDERED: amLODIPine BESYLATE 10 MG TABLET (FP) PO ONE (22:47)
[2018-02-09] MEDS ORDERED: amLODIPine BESYLATE 10 MG TABLET (FP) PO SCH (23:00)
[2018-02-10] MEDS ORDERED: MORPHINE SULFATE 10 MG/5 ML CUP PO ONE ×2 (01:01→03:00)
[2018-02-10] MEDS ORDERED: HYDROCHLOROTHIAZIDE 12.5 MG CAPSULE (FP) PO ONE (05:53)
[2018-02-10] MEDS: PENICILLIN V POTASSIUM 500 MG TABLET PO SCH ×2 (06:08→14:38)
[2018-02-10] MEDS ORDERED: PT OWN MED DRAWER 7, Y5N ONE (06:52)
[2018-02-10 07:03] VITALS: BMI 39.5
[2018-02-10 07:28] LABS: BASO % 0.2 % (0-2.0); EOS % 0.1 % (0-4.5); HEMATOCRIT 40.9 % (35.4-49); HEMOGLOBIN 14.7 GM/dL (11.7-16.9); LYMPH % 11.2 % (8-40); MCH 32.1 pg (25.7-33.7); MEAN CELL VOLUME 89.2 fl (80-96); MEAN PLT VOLUME 7.9 fl (7.5-11.1); MONO % 7.1 % (3.8-10.2); NEUT % 81.4 % (42.8-82.8); PLATELET COUNT 263 K/MM3 (134-434); RBC 4.58 M/mm3 (4.00-5.60); RDW 12.8 % (11.9-15.9); WHITE BLOOD COUNT 10.9 K/mm3 (4.0-10.0)
[2018-02-10 07:52] LABS: ANION GAP 7 (8-16); BLOOD UREA NITROGEN 13 mg/dL (7-18); CHLORIDE 104 mmol/L (98-107); CO2 28 mmol/L (21-32); CREATININE 0.8 mg/dL (0.7-1.3); GLUCOSE,RANDOM 126 mg/dL (74-106); POTASSIUM 3.9 mmol/L (3.5-5.1); SODIUM 139 mmol/L (136-145)
[2018-02-10] MEDS ORDERED: oxyCODONE HCL 5 MG TABLET PO PRN ×2 (08:50→12:28)
[2018-02-10] MEDS ORDERED: ACETAMINOPHEN 325 MG TABLET (FP) PO PRN ×2 (08:50→13:47)
[2018-02-10] MEDS ORDERED: HYDROCHLOROTHIAZIDE 12.5 MG CAPSULE (FP) PO SCH (10:00)
[2018-02-10] MEDS ORDERED: LOSARTAN POTASSIUM 50 MG TABLET (FP) PO SCH (10:00)
[2018-02-10] MEDS ORDERED: PATIENT'S OWN MEDICATION (NON-FORMULARY) (Losartan/Hydrochlorothiazide [Losartan-Hctz 100- PO SCH (10:00)
--- NOTE | 2018-02-10 10:21 | EKG ---
Test Reason : Blood Pressure : / mmHG Vent. Rate : 090 BPM Atrial Rate : 090 BPM P-R Int : 156 ms QRS Dur : 078 ms QT Int : 380 ms P-R-T Axes : 038 002 017 degrees QTc Int : 464 ms NORMAL SINUS RHYTHM POSSIBLE LEFT ATRIAL ENLARGEMENT POSSIBLE ANTERIOR INFARCT , AGE UNDETERMINED ABNORMAL ECG WHEN COMPARED WITH ECG OF 20-AUG-2014 15:32, NO SIGNIFICANT CHANGE WAS FOUND Confirmed by BELIA UMANA MD ([id number]) on 02/10/2018 10:21:12 AM Referred By: Confirmed By:BELIA UMANA MD
[2018-02-10 14:09] VITALS: BP 134/84; PULSE 99; TEMP 98.7
--- NOTE | 2018-02-10 14:22 | PN ---
Teaching Attending Note Name of Resident: Lui Dasha ATTENDING PHYSICIAN STATEMENT I saw and evaluated the patient. I reviewed the resident's note and discussed the case with the resident. I agree with the resident's findings and plan as documented. SUBJECTIVE:states pain has significantly improved. requested a percocet earlier today because he felt the morphine was too strong. denies CP, fever, chills, SOB , cough, hemoptysis, N/V/C/D OBJECTIVE: Last Vital Signs Temp Pulse Resp BP Pulse Ox 98.7 F 99 H 18 134/84 95 02/10/18 14:08 02/10/18 14:08 02/10/18 14:08 02/10/18 14:08 02/10/18 08:00 General NAD CV S1 S2 RRR Lungs some coarse breath sounds no wheezing or crackles. good inspiratory effort MSK no bone point tenderness along the L ribs, slight swelling, no erythema ASSESSMENT AND PLAN: 57yo M with PMH HTN presented to the ER after falling off a ladder with intractable L side pain 1. Intractable L side pain- due to trauma of falling off a ladder. multiple doses of morphine overnight. last dose was percoct 5mg which is now controlling the pain. clinically improved. able to use incentive spirometer without causing pain. will d/c home on percocet for 5 days as needed. encouraged pt to f/u [facility] this week for evaluation. 2. Acute hypoxic respiratory distress- likely due to pain vs pulmonary contusion. currently 95% on RA. clinically improved. 3. Nausea- due to pain and/or opiates.resolved 4. Recent tooth extraction- on PCN at home day 5 of 7 day course. will continue 5. HTN- above goal overnight due to pain. now controlled. 6. dyslipdemia- statin 7. DVT ppx- EAM 8. d/c home. counselled on risks of narcotic use and development of constipation. inquired where he got his naroctics in the past as [facility] had nothing reported and he said after each joint replacement was prescrived by Dr Orona.
--- NOTE | 2018-02-10 15:35 | DS ---
Physical Exam: SUBJECTIVE: Patient seen and examined OBJECTIVE: Vital Signs Period Temp Pulse Resp BP Sys/Long Pulse Ox Last 24 Hr 97.8 F-98.9 F 86-109 18-20 130-168/68-107 91-96 PHYSICAL EXAM GENERAL: AAOx3 in NAD HEAD: NC/AT EYES: EOMI, Conjunctiva clear, sclera anicteric ENT: moist mucous membrane NECK: Supple, no JVD LUNGS: CTA B/L, no crackles no wheezing no accessory muscle use. HEART: RRR, NSR, normal s1, s2, murmur no M/R/G ABDOMEN: Soft, ND, NT, +BS 4 Q, no CVA Tenderness LOWER EXTREMITIES: no edema, +2DP pulse, NEUROLOGICAL: No focal deficit. Normal speech. gait not observed. PSYCHIATRIC: Cooperative. Good eye contact. Appropriate mood and affect. SKIN: Warm, dry, LABS Laboratory Results - last 24 hr 02/09/18 02/10/18 02/10/18 17:48 06:00 06:00 WBC 10.9 H RBC 4.58 Hgb 14.7 Hct 40.9 MCV 89.2 MCH 32.1 MCHC 36.0 H RDW 12.8 Plt Count 263 MPV 7.9 Absolute Neuts (auto) 8.9 Neutrophils % 81.4 Lymphocytes % 11.2 D Monocytes % 7.1 Eosinophils % 0.1 D Basophils % 0.2 Nucleated RBC % 0 Sodium 139 Potassium 3.9 Chloride 104 Carbon Dioxide 28 Anion Gap 7 L BUN 13 Creatinine 0.8 Creat Clearance w eGFR > 60 POC Glucometer 128 Random Glucose 126 H Calcium 9.0 CBC, BMP 02/10/18 06:00 02/10/18 06:00 HOSPITAL COURSE: Date of Admission:02/09/18 Date of Discharge: 02/10/18 57yo M with PMH HTN presented to the ER after falling off a ladder with intractable L side pain, was traeted conservatily with pain meds all images came back negative for any fracture , pt has been improved since admission, pt will be discharged home and follow up with his PCP within one week in term of Acute hypoxic respiratory distress- likely due to pain vs pulmonary contusion. currently 95% on RA. clinically improved. pt d/c home. counselled on risks of narcotic use and development of constipation. inquired where he got his naroctics in the past as [facility] had nothing reported and he said after each joint replacement was prescribed by Dr Orona. Minutes to complete discharge: 35 Discharge Summary Reason For Visit: CONTUSION OF LUNG, TRAMATIC INURY Condition: Stable - Instructions Diet, Activity, Other Instructions: you presented to the hospital after you fall down from ladder , no fractures was seen on images but there is some contusion on left base lung due to fall , you were treated conservatively with pain medication. Take tylenol for mild pain. Use percocet for severe pain on a pain scale of >7 out of [address] or operate heavy machinery while taking narcotics. They can also cause constipation. ensure you are having regular bowel movements while taking this medication. please take your medicine as prescribed. Please continue taking your home meds as before admission Please follow fall precautions Please apply ice pack on the left side of your chest please follow up with your primary within one week If you develop fever, chills, difficulty breathing or coughing up blood or your symptoms worsen call 911 or return to ED Referrals: Khoa Mckeon [Primary Care Provider] - 1 Week Disposition: HOME - Home Medications Comprehensive Discharge Medication List: Ambulatory Orders Amlodipine Besylate 10 mg PO HS 09/04/16 Atorvastatin Ca [Lipitor] 20 mg PO DAILY 09/04/16 Losartan/Hydrochlorothiazide [Losartan-Hctz 100-12.5 mg Tab] 1 each PO DAILY Penicillin V Potassium [Pen Vee K -] 500 mg PO TID 02/09/18 Oxycodone HCl/Acetaminophen [Percocet 5-325 mg Tablet] 1 tab PO Q6H PRN #20 tablet MDD 4 tabs 02/10/18 This patient is new to me today: No Emergency Visit: Yes ED Registration Date: 02/09/18 Care time: The patient presented to the Emergency Department on the above date and was hospitalized for further evaluation of their emergent condition. Critical Care patient: No - Discharge Referral Referred to [facility] No
== END 2018-02-10 14:51 | disposition home or self-care (01) ==
LOC: JER 10:53 → J7W 16:17 → JER 18:34
PROVIDERS: ADMIT Internal Medicine; ATTEND Internal Medicine
PROC: 3E033NZ Introduction of Analgesics, Hypnotics, Sedatives into Peripheral Vein, Percutaneous Approach (ICD-10-PCS; principal; 2018-02-09)
PROC: 3E033GC Introduction of Other Therapeutic Substance into Peripheral Vein, Percutaneous Approach (ICD-10-PCS; 2018-02-09)
DX: S27.321A Contusion of lung, unilateral, initial encounter (principal); J80 Acute respiratory distress syndrome; R11.0 Nausea; I10 Essential (primary) hypertension; E78.5 Hyperlipidemia, unspecified; W11.XXXA Fall on and from ladder, initial encounter; Y93.89 Activity, other specified; Y92.9 Unspecified place or not applicable
CPT/HCPCS: 36415; 71045-TC-FY; 71250-TC; 74176-TC; 80048; 80053; 82550; 82553; 82962; 84484; 85025; 85610; 86850; 86900; 86901; 93005; 93010; 94010; 96374; 96375; 96376; 97116-GP; 97161-GP; 99285-25; G0378; J7030